=== PATIENT | female | born 1985 ===

== ENCOUNTER 2018-03-11 11:42 | Outpatient (CLI) | payer OTHER ==
--- NOTE | 2018-03-11 13:44 | RAD ---
CHEST PA AND LATERAL: HISTORY: A 32-year-old female with a history of positive TB Gold test. FINDINGS: Heart size is within normal limits. The lungs are clear. No pneumonia, edema, or pleural effusion. IMPRESSION: No acute intrathoracic disease. No evidence for active tuberculosis. POS: [facility]
== END 2018-03-11 11:43 | disposition home or self-care (01) ==
LOC: BICRAD 11:42
PROVIDERS: ATTEND Family Medicine
DX: H55.02 Latent nystagmus (principal)
CPT/HCPCS: 71046